=== PATIENT | female | born 1985 | race Two or more races ===

== ENCOUNTER 2019-03-04 18:41 | Inpatient (IN) | payer MEDICAID ==
[~2019-03-04] VITALS: Ht 162.6 cm; Wt 92.5 kg
[~2019-03-04 18:41] MED LIST: LIDOCAINE HCL 2%/EPINEPHRINE 1:100,000 20 ML VIAL INFIL ONE
[2019-03-04] MEDS ORDERED: LIDOCAINE HCL 1% 20ML VIAL (Pyxis) INJ INFIL SCH (19:45)
[2019-03-04] MEDS ORDERED: DEXT 5%/LR + PITOCIN 20UNITS/L 1,000 ML IV ONE (20:18)
[2019-03-04] MEDS: LACTATED RINGERS 1,000 ML IV SCH (20:21)
[2019-03-04 20:24] LABS: BASOPHILS % 0.2 % (0.0-2.0); HEMATOCRIT. 38.7 % (36.0-48.0); HEMOGLOBIN. 13.2 g/dL (12.0-16.0); LYMPHOCYTES % 13.8 % (20.0-50.0); MEAN CORPUSCULAR HEMOGLOBIN 32.6 pg (28.0-32.0); MEAN CORPUSCULAR VOLUME 95.8 fL (81.0-99.0); MEAN PLATELET VOLUME 8.9 fl (7.4-10.4); MONOCYTES % 6.7 % (2.0-8.0); NEUTROPHILS % 79.3 % (40.0-76.0); PLATELET 232 x1000/uL (130-400); RED BLOOD CELL COUNT 4.04 mill/uL (4.2-5.4); RED CELL DISTRIBUTION WIDTH 13.2 % (11.6-14.6)
[2019-03-04 20:30] LABS: PARTIAL THROMBOPLASTIN TIME 34.2 sec (23.4-31.0); PROTHROMBIN TIME 10.1 sec (9.6-11.0)
[2019-03-04] MEDS ORDERED: AMPICILLIN 2,000 MG in SODIUM CHLORIDE 0.9% 100 ML IV SCH (21:00)
[2019-03-04 21:04] LABS: HEPATITIS B SURFACE ANTIGEN NEGATIVE
[2019-03-04] MEDS ORDERED: ROPIVACAINE HCL/PF EPIDURAL 200 ML EPI SCH (21:15)
[2019-03-04] MEDS ORDERED: FENTANYL CITRATE/PF 50MCG/ML 2ML VIAL ONE (22:05)
[2019-03-04] MEDS ORDERED: LIDOCAINE HCL/PF 1% 10 MG/ML 5ML VIAL ONE (22:05)
[2019-03-04] MEDS: BUTORPHANOL TARTRATE 2 MG/ML VIAL IV PRN (22:29)
[2019-03-05] MEDS: BUTORPHANOL TARTRATE 2 MG/ML VIAL IV PRN (00:41)
[2019-03-05] MEDS ORDERED: AMPICILLIN 1,000 MG in SODIUM CHLORIDE 0.9% 50 ML IV SCH (03:00)
[2019-03-05] MEDS: LACTATED RINGERS 1,000 ML IV SCH ×2 (03:23→08:45)
[2019-03-05] MEDS ORDERED: MINERAL OIL 30ML BOTTLE PO STA (08:22)
[2019-03-05] MEDS ORDERED: DEXT 5%/LR + PITOCIN 20UNITS/L 1,000 ML IV SCH (09:46)
[2019-03-05] MEDS ORDERED: HEMORRHOIDAL SUPP PR PRN (10:00)
[2019-03-05] MEDS ORDERED: DIPHENHYDRAMINE 25MG CAPSULE PO PRN (10:00)
[2019-03-05] MEDS ORDERED: GLYCERIN/WITCH HAZEL LEAF MEDICATED PAD TOP PRN (10:00)
[2019-03-05] MEDS ORDERED: LANOLIN OINT 7GM TUBE TOP PRN (10:00)
[2019-03-05] MEDS ORDERED: BISACODYL 10MG SUPP PR PRN (10:00)
[2019-03-05] MEDS ORDERED: RHO(D) IMMUNE GLOBULIN 300 MCG/SYR IM PRN (10:00)
[2019-03-05] MEDS ORDERED: ACETAMINOPHEN WITH CODEINE 300/30MG TABLET PO PRN (10:00)
[2019-03-05] MEDS: IBUPROFEN 400MG TABLET PO PRN (10:09)
[2019-03-05] MEDS: ACETAMINOPHEN WITH CODEINE 300/30MG TABLET PO PRN (10:10)
[2019-03-05 12:00] VITALS: BP 111/60
[2019-03-05 12:01] LABS: CLARITY URINE CLOUDY (CLEAR); COLOR URINE RED (YELLOW); KETONES URINE 3+ (NEGATIVE); LEUKOCYTE ESTERASE URINE 2+ (NEGATIVE); NITRITE URINE NEGATIVE (NEGATIVE); OCCULT BLOOD URINE 3+ (NEGATIVE); PROTEIN URINE 2+ (NEGATIVE); SPECIFIC GRAVITY URINE 1.016 (1.005-1.030)
[2019-03-05 12:25] LABS: *AMPHETAMINES SCREEN URINE NEGATIVE (NEGATIVE); *BARBITURATES SCREEN URINE NEGATIVE (NEGATIVE); *BENZODIAZEPINES SCREEN URINE NEGATIVE (NEGATIVE); *COCAINE SCREEN URINE NEGATIVE (NEGATIVE); METHADONE URINE SCREEN NEGATIVE (NEGATIVE); OPIATES URINE SCREEN NEGATIVE (NEGATIVE)
[2019-03-05 12:26] LABS: CANNABINOID URINE SCREEN NEGATIVE (NEGATIVE); PHENCYCLIDINE URINE SCREEN NEGATIVE (NEGATIVE)
[2019-03-05 13:00] VITALS: BP 114/72
[2019-03-05 17:00] VITALS: BP 99/54
[2019-03-05 20:00] VITALS: BP 102/64
[2019-03-05] MEDS: MAGNESIUM/ALUMINUM HYDROXIDE/SIMETHICONE 30ML UDC PO SCH (20:23)
[2019-03-05] MEDS: DOCUSATE SODIUM 100MG CAPSULE PO SCH (20:23)
[2019-03-06] MEDS: IBUPROFEN 400MG TABLET PO PRN (00:04)
[2019-03-06 04:00] VITALS: BP 121/61
[2019-03-06] MEDS: FERROUS SULFATE 325MG TABLET PO SCH ×3 (07:30→17:00)
[2019-03-06 08:00] VITALS: BP 98/59
[2019-03-06] MEDS: SIMETHICONE 80MG TABLET CHEW PO SCH ×5 (08:00→21:00)
[2019-03-06 11:23] LABS: BASOPHILS % 0.8 % (0.0-2.0); HEMATOCRIT. 32.7 % (36.0-48.0); HEMOGLOBIN. 11.2 g/dL (12.0-16.0); LYMPHOCYTES % 20.5 % (20.0-50.0); MEAN CORPUSCULAR HEMOGLOBIN 32.7 pg (28.0-32.0); MEAN CORPUSCULAR VOLUME 95.2 fL (81.0-99.0); MEAN PLATELET VOLUME 8.6 fl (7.4-10.4); MONOCYTES % 8.9 % (2.0-8.0); NEUTROPHILS % 68.8 % (40.0-76.0); PLATELET 216 x1000/uL (130-400); RED BLOOD CELL COUNT 3.43 mill/uL (4.2-5.4); RED CELL DISTRIBUTION WIDTH 13.5 % (11.6-14.6)
[2019-03-06] MEDS: PRENATAL VIT/FE FUMARATE/FA TABLET PO SCH (14:30)
[2019-03-06] MEDS: MAGNESIUM/ALUMINUM HYDROXIDE/SIMETHICONE 30ML UDC PO SCH ×3 (14:31→21:00)
[2019-03-06] MEDS: ACETAMINOPHEN WITH CODEINE 300/30MG TABLET PO PRN (14:32)
[2019-03-06 16:00] VITALS: BP 102/60
[2019-03-06 19:30] VITALS: BP 108/61
[2019-03-06] MEDS: DOCUSATE SODIUM 100MG CAPSULE PO SCH (21:00)
[2019-03-07 04:30] VITALS: BP 105/63
[2019-03-07] MEDS ORDERED: FERR220S12 PO (07:35)
[2019-03-07] MEDS ORDERED: IBUP-2029 MT (07:35)
[2019-03-07] MEDS ORDERED: PREN-52 MT (07:35)
[2019-03-07] MEDS: PRENATAL VIT/FE FUMARATE/FA TABLET PO SCH (10:51)
[2019-03-07] MEDS: FERROUS SULFATE 325MG TABLET PO SCH ×2 (10:51→13:00)
[2019-03-07] MEDS: MAGNESIUM/ALUMINUM HYDROXIDE/SIMETHICONE 30ML UDC PO SCH ×2 (10:52→13:00)
[2019-03-07] MEDS: SIMETHICONE 80MG TABLET CHEW PO SCH ×2 (10:52→13:00)
[2019-03-07] MEDS: ACETAMINOPHEN WITH CODEINE 300/30MG TABLET PO PRN (10:52)
== END 2019-03-07 18:15 | disposition home or self-care (01) | DRG 560 ==
LOC: 8 EST LDRP 18:41 → OBSVTOIN 18:41 → 8EST 03-05 12:36 → 8 EST A/PP 03-06 13:30
PROVIDERS: ADMIT Obstetrics & Gynecology; ATTEND Obstetrics & Gynecology
PROC: 0KQM0ZZ Repair Perineum Muscle, Open Approach (ICD-10-PCS; principal; 2019-03-04)
PROC: 10D07Z6 Extraction of Products of Conception, Vacuum, Via Natural or Artificial Opening (ICD-10-PCS; 2019-03-04)
PROC: 3E0R3BZ Introduction of Anesthetic Agent into Spinal Canal, Percutaneous Approach (ICD-10-PCS; 2019-03-04)
PROC: 00HU33Z Insertion of Infusion Device into Spinal Canal, Percutaneous Approach (ICD-10-PCS; 2019-03-04)
PROC: 30233S1 Transfusion of Nonautologous Globulin into Peripheral Vein, Percutaneous Approach (ICD-10-PCS; 2019-03-04)
DX: O77.0 Labor and delivery complicated by meconium in amniotic fluid (principal); O71.4 Obstetric high vaginal laceration alone; D64.9 Anemia, unspecified; Z37.0 Single live birth; Z3A.39 39 weeks gestation of pregnancy; O90.81 Anemia of the puerperium
CPT/HCPCS: 36415; 80305; 81003; 86592; 86703; 86762; 86850; 86886; 86900; 87340; 90384; 99281; G0378; J0290; J0595; J2590; J2795; J3010; J3490; J7050; A4315